=== PATIENT | male | born 1955 | race Caucasian/White ===

== ENCOUNTER 2024-07-28 03:20 | Emergency (ER) | payer MEDICARE, OTHER ==
[~2024-07-28] VITALS: Ht 175.3 cm; Wt 75.0 kg
[2024-07-28] MEDS: diazePAM 5MG TABLET PO ONE (05:26)
[2024-07-28] MEDS: LIDOCAINE 5% (LIDODERM) PATCH TD ONE (05:27)
[2024-07-28] MEDS: ANEXSIA, NORCO 7.5MG/325MG TABLET(HYDROCODONE/APAP) PO ONE (05:27)
[2024-07-28] MEDS ORDERED: HYDR-3715 PO (06:07)
[2024-07-28] MEDS ORDERED: VALI2TAB PO (06:07)
[2024-07-28] MEDS ORDERED: LIDO5DIS41 TD (06:07)
[2024-07-28 07:17] VITALS: BP 144/81; TEMP 98; O2SAT 94
== END 2024-07-28 07:30 | disposition home or self-care (01) ==
LOC: EDBD 03:20 → M ED 03:20
DX: S22.42XA Multiple fractures of ribs, left side, initial encounter for closed fracture (principal); W19.XXXA Unspecified fall, initial encounter; Y92.9 Unspecified place or not applicable; Y93.9 Activity, unspecified; Y99.9 Unspecified external cause status; E11.9 Type 2 diabetes mellitus without complications; I10 Essential (primary) hypertension; E78.5 Hyperlipidemia, unspecified